=== PATIENT | female | born 1950 | race Caucasian/White ===

== ENCOUNTER 2022-06-13 13:56 | Emergency (ER) | payer OTHER ==
[~2022-06-13] VITALS: Ht 162.6 cm; Wt 88.5 kg
[2022-06-13 14:04] VITALS: BP_SYST 155
[2022-06-13 15:58] LABS: BASOPHILS % (AUTO) 0.5 % (0.0-2.0); EOSINOPHILS # (AUTO) 0.1 K/uL (0.0-0.4); EOSINOPHILS % (AUTO) 0.6 % (0.0-4.0); HEMATOCRIT 43.2 % (36-48); LYMPHOCYTES # (AUTO) 1.1 K/uL (1.0-5.5); LYMPHOCYTES % (AUTO) 10.8 % (20.5-51.5); MEAN CORPUSCULAR VOLUME 91 fL (79.0-98.0); MONOCYTES # (AUTO) 0.8 K/uL (0.0-1.0); MONOCYTES % (AUTO) 7.6 % (1.7-9.3); NEUTROPHILS # (AUTO) 8.3 K/uL (1.8-7.7); NEUTROPHILS % (AUTO) 80.5 % (40.0-70.0); PLATELET COUNT (AUTO) 235 K/uL (130-430); RED BLOOD CELL COUNT(AUTO) 4.77 MIL/uL (4.2-6.2); RED CELL DISTRIBUTION WIDTH 14.3 % (9.0-15.0); WHITE BLOOD COUNT (AUTO) 10.3 K/uL (4.8-10.8)
[2022-06-13 16:38] LABS: ANION GAP 7 (5-15); CALCIUM 9.2 mg/dL (8.4-11.0); CHLORIDE 103 mmol/L (98-107); CREATININE 1.16 mg/dL (0.55-1.30); GLUCOSE 82 mg/dL (70-99); POTASSIUM 4.4 mmol/L (3.5-5.1); UREA NITROGEN, BLOOD 20 mg/dL (8-21)
[2022-06-13 16:43] LABS: GFR AFRICAN AMERICAN 60 mL/min (>90)
[2022-06-13 16:54] LABS: ALANINE AMINOTRANSFERASE 15 U/L (12-78); ALBUMIN 3.3 g/dL (3.4-4.8); ASPARTATE AMINOTRANSFERASE 19 U/L (10-37); FREE T4 (FREE THYROXINE) 0.9 ng/dl (0.8-1.5); PHOSPHORUS 3.3 mg/dL (2.7-4.5); THYROID STIMULATING HORMONE 4.68 uIu/mL (0.36-3.74); TOTAL BILIRUBIN 0.3 mg/dL (0.0-1.0)
--- NOTE | 2022-06-13 19:57 | NUR ---
DC PT HOME AAOX4, NO SOB NOTED AND NOT IN ANY DISTRESS. DC INSTRUCTION WERE GIVEN TO PT AND SHE VERBALIZED UNDERSTANDING
== END 2022-06-13 19:55 | disposition home or self-care (01) ==
LOC: SED 13:56
DX: R00.2 Palpitations (principal); R03.0 Elevated blood-pressure reading, without diagnosis of hypertension; E78.5 Hyperlipidemia, unspecified; Z79.899 Other long term (current) drug therapy
CPT/HCPCS: 36415; 71045; 80053; 83735; 84100; 84439; 84443; 84484; 85025; 93005; 99285